=== PATIENT | female | born 1950 | race African-American/Black ===

== ENCOUNTER 2018-01-04 14:27 | Emergency (ER) | payer OTHER ==
[~2018-01-04] VITALS: Ht 167.6 cm; Wt 51.3 kg
[2018-01-04 15:08] VITALS: BP 169/74
--- NOTE | 2018-01-04 15:30 | PHYS DOC ---
Past Medical History Past Medical History: No Pertinent History Past Surgical History: No Surgical History Alcohol Use: Occasionally Drug Use: None Adult General Chief Complaint Chief Complaint: LOWER EXT PAIN HPI HPI Patient is a 67 year old female with no significant medical history who presents today complaining of moderate pain to the right foot that has been going on for 2 weeks. Patient states she was seen at [facility] 2 weeks ago and was started on cephalexin and tramadol. Patient states symptoms have been ongoing since then with no improvement with the current medications. She states she has a sore on the right great toe that has been there for weeks. She states at [facility] worked her up for diabetes and she was negative. Review of Systems Review of Systems Constitutional: Denies fever or chills [] Musculoskeletal: Right foot pain Integument: Denies rash or skin lesions [] Neurologic: Denies headache, focal weakness or sensory changes [] All other systems were reviewed and found to be within normal limits, except as documented in this note. Physical Exam Physical Exam Constitutional: Well developed, well nourished, no acute distress, non-toxic appearance. [] Skin: Warm, dry, no erythema, no rash. [] Back: No tenderness, no CVA tenderness. [] Extremities: -[place] female, dry skin, noted for callus on the right lateral proximal fifth metatarsal. Noted for callus on the right great toe dorsal aspect, the callus on this area has opened up and it looks like a stage II chronic wound approximately 2 x 2 centimeters. There is no drainage to the area. The area is dry with no erythema. Neurologic: Alert and oriented X 3, normal motor function, normal sensory function, no focal deficits noted. [] Psychologic: Affect normal, judgement normal, mood normal. [] Current Patient Data Vital Signs Vital Signs Date Time Temp Pulse Resp B/P (MAP) Pulse Ox O2 Delivery O2 Flow Rate FiO2 01/04/18 15:08 98.1 65 20 169/74 (105) 100 Room Air 98.1 EKG EKG [] Radiology/Procedures Radiology/Procedures []PROCEDURE: FOOT RIGHT 3V 3 views left foot 01/04/2018 3:11 PM Indication: Pt has sore on bottom of big toe and lateral aspect of foot at little toe,painful to bear weight, denies injury or trauma. Comparison: None Findings: No evidence of acute fracture or dislocation is identified. No erosive or hypertrophic changes appear to be present. Areas of atherosclerotic vascular calcification are noted. IMPRESSION: No evidence of acute osseous abnormality is identified Electronically signed by: Zac Treviño MD (01/04/2018 4:19 PM) [facility] DICTATED and SIGNED BY: ZAC TREVIÑO MD DATE: 01/04/18 1616 Course & Med Decision Making Course & Med Decision Making Pertinent Labs and Imaging studies reviewed. (See chart for details) This is a 67-year-old female patient presenting to the ED today with a right foot pain that has been going on for 2 weeks. Patient has an open wound to the right great toe dorsal aspect that began as a callus, she also has another calluses on the right lateral foot. No signs of infection on both. She is currently on cephalexin. X-ray of the right foot interpreted by radiologist is negative for any acute findings. Will be discharged with Bactroban ointment applied to the open wound on the great toe and instructed to complete the cephalexin. D/c with Voltaren cream for pain. Tetanus is up-to-date. Instructed to follow-up with the president educational institution which we provided. Dragon Disclaimer Dragon Disclaimer This electronic medical record was generated, in whole or in part, using a voice recognition dictation system. Departure Departure Impression: Primary Impression: Callus of heel Additional Impression: Wound of right foot Disposition: 01 HOME, SELF-CARE Condition: STABLE Referrals: UNKNOWN PCP NAME (PCP) CHARY ROQUE DPM follow up in the course of this week or next week Patient Instructions: Corns and Calluses-[facility] Additional Instructions: You were evaluated for right foot pain, you were noted to have calluses on your right foot. You do have an open wound on the right foot, continue taking cephalexin until completed apply Bactroban ointment to the wound and voltaren cream to the rest of the foot. Follow-up with the provided president educational institution in one week. Scripts Acetaminophen With Codeine (TYLENOL WITH CODEINE #3 TABLET) 1 Each Tablet 1 TAB PO PRN Q6HRS PRN for PAIN, #15 TAB Prov: MUTUNGA,CHELSY [employer]PECTOR 01/04/18 Mupirocin Calcium (BACTROBAN CREAM) 15 Gm Cream..g. 1 RYAN TP TID, #30 GM apply to the wound on the foot only Prov: CHELSY CARMONA APRN 01/04/18 Diclofenac Sodium (VOLTAREN) 100 Gm Gel..gram. 1 GM TP QID, #100 GM 2 Refills Prov: CHELSY CARMONA APRN 01/04/18 Problem Qualifiers CHELSY CARMONA APRN Jan 04, 2018 15:30
--- NOTE | 2018-01-04 16:22 | RAD ---
3 views left foot 01/04/2018 3:11 PM Indication: Pt has sore on bottom of big toe and lateral aspect of foot at little toe,painful to bear weight, denies injury or trauma. Comparison: None Findings: No evidence of acute fracture or dislocation is identified. No erosive or hypertrophic changes appear to be present. Areas of atherosclerotic vascular calcification are noted. IMPRESSION: No evidence of acute osseous abnormality is identified Electronically signed by: Zac Briceño MD (01/04/2018 4:19 PM) [facility]
[2018-01-04] MEDS ORDERED: MUPI15CR TP (16:37)
[2018-01-04] MEDS ORDERED: DICL100G18 TP (16:37)
[2018-01-04] MEDS ORDERED: ACET-704 PO (16:44)
== END 2018-01-04 16:47 | disposition home or self-care (01) ==
LOC: ER 14:27
DX: S91.301A Unspecified open wound, right foot, initial encounter (principal); L84 Corns and callosities; X58.XXXA Exposure to other specified factors, initial encounter; Y93.89 Activity, other specified; Y92.89 Other specified places as the place of occurrence of the external cause; Y99.8 Other external cause status
CPT/HCPCS: 73630; 99284

== ENCOUNTER → 2018-01-07 | Outpatient (CLI) | payer OTHER ==
[2018-01-04 15:08] VITALS: BP 169/74
[~2018-01-07] MED LIST: ACET-704 PO; DICL100G18 TP; MUPI15CR TP
== END | disposition home or self-care (01) ==
LOC: SPEC 13:20
PROVIDERS: ATTEND Podiatrist
DX: L03.031 Cellulitis of right toe (principal)
CPT/HCPCS: 87071; 87075